=== PATIENT | female | born 1990 | race Caucasian/White ===

== ENCOUNTER 2017-02-28 07:00 | Inpatient (IN) | payer OTHER ==
[~2017-02-28] VITALS: Ht 162.6 cm; Wt 74.0 kg
[2017-02-28] VITALS (40 sets, daily range): BP systolic 78–143; BP diastolic 44–74
[~2017-02-28 07:00] MED LIST: DCS100C PO; IBP800T PO; LVT.025T PO; OXYC1TAB12 PO; PREN1TAB19 PO
[2017-02-28] MEDS ORDERED: OXYTOCIN/NORMAL SALINE 500 ML IV SCH ×2 (07:27→07:30)
[2017-02-28] MEDS ORDERED: D5 LR IV SOLUTION 1,000 ML IV SCH (07:27)
[2017-02-28] MEDS ORDERED: TETANUS,DIPTH,PERTUSS P/F (BOOSTRIX) 0.5 ML VIAL IM ONE (07:30)
[2017-02-28] MEDS ORDERED: BENZOCAINE/MENTHOL (DERMOPLAST) 56 ML CAN TP PRN (07:30)
--- NOTE | 2017-02-28 07:34 | History & Physical ---
History and Physical this patient is a 25-year-old white female with an EDC of 4 [phone] putting her now at 39-3/7 weeks gestation. Her has been uncomplicated. She is admitted now for induction of labor electively. Her GBS culture done at 36 and 1/7 weeks gestation was negative. allergies are to Ceclor and Septra causes rash Medications are vitamins and Synthroid 25 g daily S medical history, past surgical history, obstetric history, family history, and social histories are per the antepartum record HEENT exam is normal Neck supple no lymphadenopathy no thyromegaly Abdomen is gravid soft nontender nondistended Extremities show no clubbing or cyanosis. There is no Homans sign. Cervical exam on February 19 showed a cervix 3 cm dilated more than 50 percent effaced -1-0 station vertex presentation with very soft consistency and midplane. This equates to a Salazar score of 9 Assessment and plan 39 and 3 weeks gestation admitted now for induction of labor. Anticipation is for vaginal delivery. elective induction of labor at 39-3/7 weeks gestation Allergies and Home Medications Allergies Coded Allergies: cefaclor (Unverified Allergy, Unknown, 08/21/09) sulfamethoxazole (Unverified Allergy, Unknown, 08/21/09) trimethoprim (Unverified Allergy, Unknown, 08/21/09) Home Medications Docusate Sodium 100 Mg Cap, 100 MG PO BID, #60 Prescribed by: DENNISE MANDUJANO on 04/01/15 0851 Ibuprofen 800 Mg Tab, 800 MG PO Q6H, #60 Prescribed by: DENNISE MANDUJANO on 04/01/1551 Levothyroxine Sodium 25 Mcg Tablet, 25 MCG PO DAILY, (Reported) Oxycodone Hcl/Acetaminophen 1 Tab Tablet, 1-2 TAB PO Q4H PRN for PAIN, #60 Prescribed by: DENNISE MANDUJANO on 04/01/15 0851 Vit/Fe Fumarate/Fa 1 Each Tablet, 1 EACH PO DAILY, (Reported) DENNISE SALAZAR MD Feb 28, 2017 7:34 am
[2017-02-28 07:57] LABS: BASOPHILS # (AUTO) 0.1 10^3/uL (0.0-0.1); BASOPHILS % (AUTO) 1 % (0-10); EOSINOPHILS # (AUTO) 0.1 10^3/uL (0.0-0.3); EOSINOPHILS % (AUTO) 1 % (0-10); LYMPHOCYTES # (AUTO) 2.3 X 10^3 (1.0-4.0); LYMPHOCYTES % (AUTO) 21 % (12-44); MEAN CORPUSCULAR HEMOGLOBIN 30 PG (25-34); MEAN CORPUSCULAR HGB CONC 33 G/DL (32-36); MEAN CORPUSCULAR VOLUME 91 FL (80-99); MEAN PLATELET VOLUME 11.4 FL (7.4-10.4); MONOCYTES # (AUTO) 0.9 X 10^3 (0.0-1.0); MONOCYTES % (AUTO) 8 % (0-12); NEUTROPHILS # (AUTO) 7.7 X 10^3 (1.8-7.8); NEUTROPHILS % (AUTO) 70 % (42-75); PLATELET COUNT 244 10^3/uL (130-400); RED BLOOD COUNT 3.57 10^6/uL (4.35-5.85); RED CELL DISTRIBUTION WIDTH 13.2 % (10.0-14.5); WHITE BLOOD COUNT 11.1 10^3/uL (4.3-11.0)
[2017-02-28] MEDS ORDERED: SUFENTA 0.6MCG/ML BUPIVA 0.125 100 ML ONE (09:07)
[2017-02-28] MEDS ORDERED: fentaNYL INJECTION 100 MCG/2 ML AMP ONE (09:46)
[2017-02-28] MEDS ORDERED: BUPIVACAINE 0.25% 30 ML (SENSORCAINE) VIAL ONE (09:47)
[2017-02-28] MEDS ORDERED: LACTATED RINGERS 1,000 ML IV ONE ×2 (10:33)
[2017-02-28] MEDS ORDERED: EPIDURAL (SUFENTA 0.6MCG/ML BUPIVA 0.125%) 100 ML BAG EPI PRN (10:45)
[2017-02-28] MEDS ORDERED: fentaNYL INJECTION 100 MCG/2 ML AMP INJ ONE (10:45)
[2017-02-28] MEDS ORDERED: NALOXONE 0.4 MG/ML 1 ML (NARCAN) VIAL IV PRN (10:45)
[2017-02-28] MEDS ORDERED: BUPIVACAINE 0.25% 30 ML (SENSORCAINE) VIAL INJ ONE (10:45)
[2017-02-28] MEDS ORDERED: ONDANSETRON 4 MG/2 ML (SDV) Z0FRAN IV PRN (10:45)
[2017-02-28] MEDS ORDERED: MINERAL OIL CONCENTRATE 99.9% 15 ML UDC ONE (10:51)
[2017-02-28] MEDS ORDERED: LIDOCAINE/EPI 1%-1:200,000 (XYLOCAINE) 30 ML VIAL ONE (10:51)
--- NOTE | 2017-02-28 12:29 | OB Bishop Score ---
Salazar Score 9 DENNISE SALAZAR MD Feb 28, 2017 12:29 pm
[2017-02-28] MEDS: KETOROLAC 30 MG/ML VIAL IV SCH ×2 (14:49→21:42)
[2017-02-28] MEDS ORDERED: IBUPROFEN 800 MG (MOTRIN) TAB PO ONE ×2 (15:37→21:37)
[2017-02-28] MEDS: IBUPROFEN 800 MG (MOTRIN) TAB PO SCH ×2 (15:41→21:42)
[2017-02-28] MEDS ORDERED: WITCH HAZEL(TUCKS) 40 EA JAR TOP PRN (17:45)
[2017-02-28] MEDS: oxyCODONE/APAP 10/325MG (PERCOCET 10) TABLET PO PRN ×2 (18:02→22:58)
[2017-02-28] MEDS: DOCUSATE SODIUM 100 MG (COLACE) CAP PO SCH (21:42)
[2017-03-01 04:20] VITALS: BP 94/56
[2017-03-01] MEDS: IBUPROFEN 800 MG (MOTRIN) TAB PO SCH ×2 (04:24→10:14)
[2017-03-01 08:55] VITALS: BP 117/79
[2017-03-01] MEDS: oxyCODONE/APAP 10/325MG (PERCOCET 10) TABLET PO PRN ×2 (08:58→14:46)
[2017-03-01] MEDS: DOCUSATE SODIUM 100 MG (COLACE) CAP PO SCH (08:58)
--- NOTE | 2017-03-01 09:53 | Progress Note-Standard ---
Standard Progress Note Progress Notes/Assess & Plan Progress/Assessment & Plan patient without complaint. She is ambulating, voiding, tolerating by mouth well , has good pain control, is requesting discharge home. Vital Signs Date Time Temp Pulse Resp B/P (MAP) Pulse Ox O2 Delivery O2 Flow Rate FiO2 03/01/17 08:55 98.0 67 18 117/79 98 Room Air 03/01/17 04:20 98.3 77 18 94/56 96 Room Air 02/28/17 23:58 98.2 66 18 91/48 97 Room Air 02/28/17 20:00 98.1 66 18 101/60 98 Room Air 02/28/17 16:32 99.6 77 18 105/56 Room Air 02/28/17 15:32 76 18 123/61 Room Air 02/28/17 15:17 78 18 120/63 Room Air 02/28/17 15:02 78 18 118/67 Room Air 02/28/17 14:47 84 18 119/65 Room Air 02/28/17 14:33 68 18 117/59 Room Air 02/28/17 14:03 86 18 105/52 Room Air 02/28/17 13:53 112 18 115/63 Room Air 02/28/17 13:50 146 18 143/61 Room Air 02/28/17 13:18 59 18 106/65 Room Air 02/28/17 13:05 63 18 103/64 Room Air 02/28/17 12:49 63 18 103/59 Non Rebreather 10.00 02/28/17 12:35 57 18 98/52 Non Rebreather 10.00 02/28/17 12:19 98.6 64 18 85/53 Non Rebreather 10.00 02/28/17 12:06 84 18 91/53 Non Rebreather 10.00 02/28/17 11:49 67 18 97/58 Room Air 02/28/17 11:34 67 18 93/50 Room Air 02/28/17 11:20 68 18 90/51 Room Air 02/28/17 11:03 67 18 79/44 Room Air 02/28/17 10:54 63 18 100/58 98 Room Air 02/28/17 10:49 66 18 97/55 98 Room Air 02/28/17 10:44 71 18 95/53 98 Room Air 02/28/17 10:39 71 18 78/44 98 Room Air 02/28/17 10:34 59 18 87/50 98 Room Air 02/28/17 10:29 78 18 97/55 98 Room Air 02/28/17 10:22 94 18 105/56 98 Room Air 02/28/17 10:19 81 18 104/60 98 Room Air 02/28/17 10:17 83 18 111/56 98 Room Air 02/28/17 10:13 94 18 118/64 98 Room Air 02/28/17 10:10 84 18 120/69 98 Room Air 02/28/17 10:07 98 18 123/67 98 Room Air 02/28/17 10:04 83 18 125/61 98 Room Air 02/28/17 10:01 89 18 122/62 98 Room Air 02/28/17 09:58 77 18 124/65 99 Room Air 02/28/17 09:55 74 18 123/68 99 Room Air I & O 03/01/17 07:00 Intake Total 4380 ml Balance 4380 ml Vital signs are stable. Patient is afebrile. Fundus is firm below the umbilicus and nontender. Extremities show clubbing or cyanosis. There is no Homans sign.there is some pretibial pitting edema that is normal. assessment and plan day number 1 status post return spontaneous vaginal delivery doing well. Plan is for discharge home with follow-up in clinic. Final Diagnosis term spontaneous vaginal delivery at 39+ weeks' gestation DENNISE SALAZAR MD Mar 01, 2017 9:53 am
[2017-03-01] MEDS ORDERED: DOCU100C37 PO (09:54)
[2017-03-01] MEDS ORDERED: IBUP-1780 PO (09:54)
[2017-03-01] MEDS ORDERED: OXYC-465 PO (09:54)
--- NOTE | 2017-03-01 09:55 | Discharge Instructions ---
Discharge Instructions Discharge Medications New, Converted or Re-Newed RX: RX on Chart Patient Instructions Patient Instructions: as directed Return to The Hospital For: as directed Activity & Diet Discharge Diet: No Restrictions Activity as Tolerated: No Orders-Post D/C & Referrals Follow Up Appt: Call to make follow up appt. for patient in 4 to 6 weeks. Activity Per routine post vaginal delivery instructions. Diet as tolerated Patient may shower or tub bathe as desired. DENNISE SALAZAR MD Mar 01, 2017 9:55 am
[2017-03-01 14:40] VITALS: BP 110/67
[2017-03-01] MEDS ORDERED: TETANUS,DIPTH,PERTUSS P/F (BOOSTRIX) 0.5 ML VIAL IM ONE (16:33)
--- NOTE | 2017-03-02 12:36 | PROCEDURE REPORT ---
PROCEDURE PHYSICIAN: DENNISE SALAZAR DATE OF DELIVERY: 02/28/2017 DATE OF DICTATION: 02/28/2017 The patient delivered tern spontaneous vaginal delivery of a viable female with Apgars of 9 and 9 at one and five minutes respectfully. Weight was 7 pounds, 10 ounces. time was 1349. The patient delivered over a midline episiotomy performed at the patient's request to preserve the strength and support of her perineal body. The was delivered with the next subsequent contraction. The was bulb suctioned on delivery of the head, again on completion of delivery. The cord, when pulseless, was doubly clamped, father cut the cord. The baby was passed to mom's abdomen. Cord bloods were obtained including an arterial blood gas from the umbilical cord pathology; results on that is pending. The placenta delivered spontaneously Arnold. It was normal with a 3 vessel cord. The placenta was sent to pathology for permanent section due to decrease variability and episodes of decels during the labor. The cervix, vagina, rectum and perineum were examined and found intact except for the midline episiotomy, which was repaired with a single suture of 2-0 Vicryl Rapide in the usual manner to good reapproximation and good hemostasis. The patient tolerated the delivery and the repair well and remained in the LDR for recovery. The baby remained with the mom. Sponge, needle counts were correct on completion of delivery and repair. Estimated blood loss was around 250 mL Job ID: [id number] Dictated Date: 02/28/2017 14:46:21 Manager Switch Date: 03/02/2017 12:31:42 / tucker
--- OUTSIDE RECORDS SUMMARY | 2017-04-03 21:01 | XMS REPORT | Continuity of Care Document ---
Author Author [facility] Organization [facility] Address Unknown Phone Unavailable Care Team Providers Care Roll Cutting Operator Name Role Phone Kristina Gaxiola [phone] Source Comments Some departments are not documenting in the electronic medical record. If you do not see the information that you expected, contact Release of Information in the Health Information Management department at [phone] for further assistance in locating additional records.[facility] Active Allergies and Adverse Reactions Not on File Current Medications Not on file Active Problems Not on file Social History Tobacco Use Types Packs/Day Years Used Date Never Assessed Plan of Care Health Maintenance Due Date Last Done Comments Physical (Comprehensive) 1996 Exam Pertussis Vaccine 2000 Tetanus Vaccine 2006 Cervical Cancer Screening 2010 Influenza Vaccine 07/25/2017 Results from Last 3 Months Not on file
== END 2017-03-01 17:00 | disposition home or self-care (01) | DRG 775 ==
LOC: LDRP 07:07
PROVIDERS: ADMIT Obstetrics & Gynecology; ATTEND Obstetrics & Gynecology
PROC: 0W8NXZZ Division of Female Perineum, External Approach (ICD-10-PCS; principal; 2017-02-28)
PROC: 10E0XZZ Delivery of Products of Conception, External Approach (ICD-10-PCS; 2017-02-28)
PROC: 3E033VJ Introduction of Other Hormone into Peripheral Vein, Percutaneous Approach (ICD-10-PCS; 2017-02-28)
DX: O80 Encounter for full-term uncomplicated delivery (principal); Z3A.39 39 weeks gestation of pregnancy; Z23 Encounter for immunization; Z37.0 Single live birth
CPT/HCPCS: 36415; 85025; 86850; 86900; 86901; 90715

== ENCOUNTER → 2020-05-08 | Outpatient (CLI) | payer OTHER ==
[~2020-05-08] MED LIST changes: +DOCU100C37 PO; +IBUP-1780 PO; +OXYC-465 PO
== END ==
LOC: LABNPT 11:52
PROVIDERS: ATTEND Nurse Practitioner Family
DX: R05 Cough (principal); Z20.828 Contact with and (suspected) exposure to other viral communicable diseases
CPT/HCPCS: 87635

== ENCOUNTER 2022-11-02 18:01 | Outpatient (CLI) | payer OTHER ==
[~2022-11-02] VITALS: Ht 160 cm; Wt 58.0 kg
[~2022-11-02 18:01] MED LIST changes: -OXYC-465 PO; +OXYC-556 PO
[2022-11-02] MEDS ORDERED: ORPHENADRINE 60 MG/2 ML (NORFLEX) AMP (ED ONLY) ONE (18:12)
[2022-11-02] MEDS ORDERED: KETOROLAC 30 MG/ML VIAL ONE (18:12)
[2022-11-02] MEDS ORDERED: ORPHENADRINE 60 MG/2 ML (NORFLEX) AMP (ED ONLY) IM ONE (18:15)
[2022-11-02] MEDS ORDERED: KETOROLAC 60 MG/2 ML VIAL IM ONE (18:15)
[2022-11-02 18:17] VITALS: BP 136/82
[2022-11-02] MEDS ORDERED: CYCL10TA25 PO (18:40)
== END 2022-11-02 18:25 | disposition home or self-care (01) ==
LOC: ER 18:01 → 4THo 18:25
PROVIDERS: ATTEND Emergency Medicine
DX: S16.1XXA Strain of muscle, fascia and tendon at neck level, initial encounter (principal)
CPT/HCPCS: 96372

== ENCOUNTER → 2023-03-14 | Outpatient (CLI) | payer OTHER ==
[~2023-03-14] MED LIST changes: +CYCL10TA25 PO
--- NOTE | 2023-03-14 14:03 | Diagnostic Imaging Report ---
Indication: Left breast pain. Correlation is made with diagnostic mammogram earlier same day. Sonographic interrogation of the area of pain in the left axillary region was performed. No sonographic abnormality is identified. No solid or cystic mass is detected. IMPRESSION: BI-RADS Category 1 No sonographic abnormality is identified. ACR BI-RADS Category 1: Negative. Result letter will be mailed to the patient. Note: At least 10% of breast cancer is not imaged by mammography. Dictated by: Dictated on workstation # [id number]
--- NOTE | 2023-03-14 14:07 | Diagnostic Imaging Report ---
INDICATION: Left breast pain in the upper outer aspect. No prior mammograms are available for comparison. Unilateral left 2-D and 3-D diagnostic mammography was performed with CAD. Left breast is heterogeneously dense, limiting the sensitivity of mammography. No dominant mass or malignant-appearing microcalcifications are seen. Left axilla is unremarkable. IMPRESSION: No mammographic features suspicious for malignancy are identified. Even so, directed sonographic interrogation of the area of pain in the upper outer left breast is recommended and will be performed today. ACR BI-RADS Category 0: Incomplete. (Needs additional imaging evaluation). Result letter will be mailed to the patient. Note: At least 10% of breast cancer is not imaged by mammography. BI-RADS 0 Dictated by: Dictated on workstation # [id number]
== END ==
LOC: RAD 12:17
PROVIDERS: ATTEND Surgery
DX: N63.20 Unspecified lump in the left breast, unspecified quadrant (principal)
CPT/HCPCS: 76642; 77065; G0279

== ENCOUNTER → 2023-06-24 | Outpatient (CLI) | payer OTHER ==
[2023-06-24 09:16] LABS: BASOPHILS # (AUTO) 0.1 10^3/uL (0.0-0.1); BASOPHILS % (AUTO) 1 % (0-10); EOSINOPHILS # (AUTO) 0.2 10^3/uL (0.0-0.3); EOSINOPHILS % (AUTO) 2 % (0-10); HEMATOCRIT 42 % (35-52); LYMPHOCYTES % (AUTO) 27 % (12-44); MEAN CORPUSCULAR HEMOGLOBIN 31 pg (25-34); MEAN CORPUSCULAR HGB CONC 34 g/dL (32-36); MEAN CORPUSCULAR VOLUME 91 fL (80-99); MONOCYTES # (AUTO) 0.5 10^3/uL (0.0-1.0); MONOCYTES % (AUTO) 7 % (0-12); NEUTROPHILS # (AUTO) 4.8 10^3/uL (1.8-7.8); NEUTROPHILS % (AUTO) 63 % (42-75); PLATELET COUNT 260 10^3/uL (130-400); WHITE BLOOD COUNT 7.5 10^3/uL (4.3-11.0)
[2023-06-24 09:38] LABS: ALBUMIN 4.4 GM/DL (3.2-4.5); BILIRUBIN,TOTAL 0.4 MG/DL (0.1-1.0); CALCIUM 9.3 MG/DL (8.5-10.1); CREATININE SERUM 0.72 MG/DL (0.60-1.30); POTASSIUM 4.3 MMOL/L (3.6-5.0); TOTAL PROTEIN 7.1 GM/DL (6.4-8.2)
[2023-06-24 09:59] LABS: FREE T4 (FREE THYROXINE) 0.99 NG/DL (0.70-1.48)
== END ==
LOC: LAB 08:48
PROVIDERS: ATTEND Physician Assistant
DX: Z00.00 Encounter for general adult medical examination without abnormal findings (principal); E03.9 Hypothyroidism, unspecified
CPT/HCPCS: 36415; 80053; 80061; 84439; 84443; 85025